=== PATIENT | female | born 1975 | race Caucasian/White ===

== ENCOUNTER → 2020-02-08 | Outpatient (CLI) | payer OTHER ==
--- NOTE | 2020-02-11 10:19 | MM ---
Reason for exam: screening (asymptomatic). Last mammogram was performed 6 years and 9 months ago. History: Family history of breast cancer in maternal grandmother at age 78. Took hormonal contraceptives for 22 years 2 months. Physical Findings: A clinical breast exam by your physician is recommended on an annual basis and results should be correlated with mammographic findings. MG Screening Mammo w CAD Bilateral CC and MLO view(s) were taken. Prior study comparison: May 16, 2013, CAD bilateral diagnostic mammogram. The breast tissue is heterogeneously dense. This may lower the sensitivity of mammography. Stable benign calcifications. New nodule right breast. ASSESSMENT: Incomplete: need additional imaging evaluation, BI-RAD 0 RECOMMENDATION: Ultrasound of the right breast. [facility] will attempt to contact patient to return for ultrasound.
== END | disposition home or self-care (01) ==
LOC: RADMAMWWP 15:35
PROVIDERS: ATTEND Family Medicine
DX: Z12.31 Encounter for screening mammogram for malignant neoplasm of breast (principal)
CPT/HCPCS: 77067

== ENCOUNTER → 2020-02-27 | Outpatient (CLI) | payer OTHER ==
--- NOTE | 2020-02-27 09:04 | USB ---
Reason for exam: additional evaluation requested from abnormal screening. History: Family history of breast cancer in maternal grandmother at age 78. Took hormonal contraceptives for 22 years 2 months. Physical Findings: Nurse Summary: right breast palpable 11 o'clock, nontender, movable, 0.5 x 0.5cm right breast papable 9 o'clock 0.5 x 0.5cm (nurse ts). US Breast Workup Limited RT Right limited breast ultrasound including focal area of concern, retroareolar and axilla demonstrates a 0.8 x 0.7 x 0.8cm oval, cystic lesion at 9 o'clock and a 0.7 x 0.5 x 0.4cm oval, lobular lesion at 10 o'clock. These results were verbally communicated with the patient and result sheet given to the patient on 02/27/20. ASSESSMENT: Benign, BI-RAD 2 RECOMMENDATION: Return to routine screening mammogram schedule for both breasts.
== END | disposition home or self-care (01) ==
LOC: RADUSWWP 08:03
PROVIDERS: ATTEND Family Medicine
DX: R92.8 Other abnormal and inconclusive findings on diagnostic imaging of breast (principal)

== ENCOUNTER → 2022-04-16 | Outpatient (CLI) | payer OTHER ==
--- NOTE | 2022-04-19 08:30 | MM ---
Reason for Exam: Screening (asymptomatic). Last mammogram was performed 2 year(s) and 3 month(s) ago. Patient History: Menarche at age 12. First Full-Term at age 24. Postmenopausal. Hormonal Contraceptives for 22 years, 2 months. Maternal grandmother had breast cancer, age 78. Risk Values: Vanessa 5 year model risk: 0.9%. NCI Lifetime model risk: 9.3%. Prior Study Comparison: 05/16/2013 Bilateral Diagnostic Mammogram, [facility]. 02/08/2020 Bilateral Screening Mammogram, [facility]. Tissue Density: The breast tissue is heterogeneously dense. This may lower the sensitivity of mammography. Findings: Analyzed By CAD. There is no suspicious group of microcalcifications. Benign round appearing calcifications within both breasts. Decreased size of cystic lesion within the right central breast middle depth measuring 6 mm, previously 10 mm. Partially obscured 6 mm retroareolar focal asymmetry in the left breast. Overall Assessment: Incomplete: need additional imaging evaluation, BI-RAD 0 Management: Diagnostic Breast Ultrasound of the left breast. A clinical breast exam by your physician is recommended on an annual basis and results should be correlated with mammographic findings. [facility] will attempt to contact patient to return for supplemental views and ultrasound if indicated. Electronically signed and approved by: Mark Nicolas D.O.
== END | disposition home or self-care (01) ==
LOC: RADMAMWWP 08:23
PROVIDERS: ATTEND Family Medicine
DX: Z12.31 Encounter for screening mammogram for malignant neoplasm of breast (principal)
CPT/HCPCS: 77067

== ENCOUNTER → 2022-04-23 | Outpatient (CLI) | payer OTHER ==
--- NOTE | 2022-04-23 13:33 | USB ---
Reason for Exam: Additional evaluation requested from abnormal screening. Patient History: Menarche at age 12. First Full-Term at age 24. Postmenopausal. Hormonal Contraceptives for 22 years, 2 months. Maternal grandmother had breast cancer, age 78. Risk Values: Vanessa 5 year model risk: 0.9%. NCI Lifetime model risk: 9.3%. Prior Study Comparison: 05/16/2013 Bilateral Diagnostic Mammogram, [facility]. 02/08/2020 Bilateral Screening Mammogram, [facility]. 04/16/2022 Bilateral MG screening mammo w CAD, [facility]. Findings: The axilla of the left breast and the retroareolar of the left breast were scanned. There is an anechoic structure with good through transmission posterior wall enhancement measuring 0.4 x 0.3 x 0.4 cm 1.5 cm from nipple. This corresponds to the abnormality on the ultrasound.. Overall Assessment: Benign, BI-RAD 2 Management: Screening Mammogram of both breasts in 1 year. A clinical breast exam by your physician is recommended on an annual basis and results should be correlated with mammographic findings. This exam should not preclude additional follow-up of suspicious palpable abnormalities. ??Results were given to the patient verbally at the time of exam. Electronically signed and approved by: Murali Perez D.O. Radiologis
== END | disposition home or self-care (01) ==
LOC: RADUSWWP 12:58
PROVIDERS: ATTEND Family Medicine
DX: R92.8 Other abnormal and inconclusive findings on diagnostic imaging of breast (principal); Z80.3 Family history of malignant neoplasm of breast; Z78.0 Asymptomatic menopausal state

== ENCOUNTER → 2022-07-27 | Outpatient (CLI) | payer OTHER ==
[2022-07-27 21:54] LABS: Gliadin AB IgA, Deaminated NEGATIVE (NEGATIVE); Gliadin AB IgA, Unit 2.9 U/mL; Gliadin AB IgG, Deaminated NEGATIVE (NEGATIVE); Gliadin AB IgG, Unit <0.4 U/mL
[2022-07-29 05:57] LABS: Methylmalonic Acid 0.14 umol/L (<0.40)
[2022-07-29 07:47] LABS: C Reactive Protein <0.30 mg/dL (0.00-0.80); Calcium 9.7 mg/dL (8.7-10.3); Magnesium 1.9 mg/dL (1.5-2.4)
[2022-07-29 09:14] LABS: Lyme IgG/IgM 0.04 Index
== END | disposition home or self-care (01) ==
LOC: LABWHC1 10:22
PROVIDERS: ATTEND Family Medicine
DX: E78.5 Hyperlipidemia, unspecified (principal); L50.9 Urticaria, unspecified; K59.00 Constipation, unspecified; R53.83 Other fatigue
CPT/HCPCS: 36415; 82310; 82533; 82626; 83090; 83516; 83520; 83695; 83735; 83921; 86140; 86618